=== PATIENT | female | born 2000 ===

== ENCOUNTER 2020-09-22 10:47 | Emergency (ER) | payer OTHER, BC ==
[~2020-09-22] VITALS: Ht 162.6 cm; Wt 77.1 kg
[2020-09-22] MEDS ORDERED: LEVSIN/SL0.125 MG PO (15:13)
[2020-09-22] MEDS ORDERED: PEPCID AC20 MG PO (15:13)
[2020-09-22] MEDS ORDERED: INTESTINEX680 M1 PO (15:13)
[2020-10-28] MEDS ORDERED: ACETAMINOPHEN500 M2 (11:19)
== END 2020-09-22 15:58 | disposition home or self-care (01) ==
LOC: ER 10:47
DX: R55 Syncope and collapse (principal); E86.0 Dehydration; K29.60 Other gastritis without bleeding; Z20.822 Contact with and (suspected) exposure to COVID-19